=== PATIENT | female | born 1990 | race Hispanic/Latino ===

== ENCOUNTER 2024-12-25 01:10 | Emergency (ER) | payer OTHER ==
--- OUTSIDE RECORDS SUMMARY | 2024-12-25 01:15 | XMS REPORT | Continuity of Care Document ---
Author Name Unknown Address [address] [facility] [address] [place] [address] [facility] Address [address] [facility] [address] [place] [address] Care Team Providers Care Mission Support Specialist Name Role Phone Enrique Carlson Primary Care Physician KAL POSEY Attending Clinician Unavailable Kal Posey MD Attending Clinician ISHMAEL VILLAGRAN Attending Clinician Unavailable ROLLY RIVERA Attending Clinician Unavailable Payers Payer Name Policy Type Policy Number Effective Date Expirati on Date Source [facility] [id number] 00:00:00 BCBS [id number] 2022 00:00:00 Problems Condition Name Condition Details Condition Category Status Onset Date Resolution Date Last Treatment Date Treating Clinician Comments Source PCOS (polycysti c ovarian syndrome) PCOS (polycysti c ovarian syndrome) Disease Active 01-27 00:00: 00 Overview: Formattin g of this note might be different from the original. Diagnosed by anovulato ry cycles, hirsutism , infertili ty and US with polycysti c ovariesOr dered AUB labsBut Aub-O Counseled patient on weight loss and treatment optionsRe commend progester one therapy for endometri al protectio nPatient desiring fertility , therefore recommend cyclic provera as wellCouns eled on all options of BCM. For fertility patient will likely need ovulation induction . SRUTHI referral given and counseled patient on ovulation kitsWill return in 3 months for follow up [facility] Abnormal uterine bleeding Abnormal uterine bleeding Disease Active 01-27 00:00: 00 Overview: Formattin g of this note might be different from the original. AUB-O 2/2 to PCOShgb 12.1Colle cted rest AUB labs, UPT negPap 06/2022 NILM HRHPV neg (in media)US reviewed, 6 cm uterus, no masses, polycysti c ovariesCo unseled on options, desiring fertility , desires cyclic proveraRX sentWill follow up in 3 months for follow up [facility] Social History Social Habit Start Date Stop Date Quantity Comments Source Gender identity 2024-01-07 11:31:18 Identifies as female gender (finding) [facility] History of tobacco use Current smoker [facility] ASSERTION Not Beltran Gomez Sexual orientation [facility] History of Social function 2023-06-23 00:00:00 2023-06-23 00:00:00 [facility] Exposure to SARS-CoV-2 (event) 2023-01-17 00:00:00 2023-01-27 10:54:00 Not sure [facility] Tobacco use and exposure 2023-01-27 00:00:00 2023-01-27 00:00:00 Smokeless tobacco non-user [facility] Sex Assigned At 1990 00:00:00 1990 00:00:00 [facility] Smoking Status Start Date Stop Date Source [facility] Never smoked tobacco [facility] Medications Ordered Medication Name Filled Medication Name Start Date Stop Date Current Medication? Ordering Clinician Indication Dosage Frequency Signature (SIG) Comments Components Source GI cocktail (aluminum hydroxide/m agnesium hydroxide/l idocaine/si methicone) GI cocktail (aluminum hydroxide/m agnesium hydroxide/l idocaine/si methicone) 10-29 05:35: 00 10-29 05:41 :00 No 30mL 30 mL, Oral, Once, On Tue10/29/24 at 0535, For 1 dose Beltran Gomez famotidine (PF) (Pepcid) injection 20 mg famotidine (PF) (Pepcid) injection 20 mg 10-29 05:30: 00 Yes 20mg 20 mg, Intravenou s, Administer over 2 Minutes, Once, On Tue10/29/24 at 0530, For 1 dose Beltran Gomez morphine PF injection 4 mg morphine PF injection 4 mg 10-29 05:10: 00 10-29 05:13 :00 No 4mg 4 mg, Intravenou s, Once, On Tue10/29/24 at 0510, For 1 dose, Administer IVP. Beltran Gomez ondansetron (Zofran) injection 4 mg ondansetron (Zofran) injection 4 mg 10-29 04:15: 00 10-29 04:34 :00 No 4mg 4 mg, Intravenou s, Once, On Tue10/29/24 at 0415, For 1 dose, Administer IVP. Beltran Gomez sodium chloride 0.9 % bolus 1,000 mL [id number] 1-13 04:15: 00 10-29 05:34 :00 No 1000mL 1,000 mL, Intravenou s, at 1,000 mL/hr, Administer over 1 Hours, Once, On Tue10/29/24 at 0415, For 1 dose Beltran Gomez sodium chloride (NS) 0.9 % flush 10 mL sodium chloride (NS) 0.9 % flush 10 mL 10-29 04:14: 15 Yes 10mL [Order 1 Start] Name: Insert peripheral IV Signed Summary: Once, On Tue10/29/24 at 0415, For 1 occurrence [Order 1 End] [Order 2 Start] Name: Saline lock IV Signed Summary: Once, On Tue10/29/24 at 0415, For 1 occurrence [Order 2 End] [Order 3 Start] Name: sodium chloride (NS) 0.9 % flush 10 mL Signed Summary: 10 mL, Intravenou s, As needed, line care, Starting on Tue10/29/24 at 0414 [Order 3 End] Beltran Gomez famotidine (Pepcid) 40 MG tablet famotidine (Pepcid) 40 MG tablet 10-29 00:00: 00 11-18 23:59 :00 No 40mg QD Take 1 tablet by mouth as needed at bedtime for heartburn for up to 20 days. Beltran Gomez ondansetron ODT (Zofran-ODT ) 4 MG disintegrat ing tablet ondansetron ODT (Zofran-ODT ) 4 MG disintegrat ing tablet 1-13 00:00: 00 11-05 23:59 :00 No 4mg Q8H Take 1 tablet by mouth every 8 hours if needed for nausea or vomiting for up to 7 days. Beltran Btaista Epic Semaglutide ,0.25 or 0.5MG/DOS, (Ozempic, 0.25 or 0.5 MG/DOSE,) 2 MG/3ML solution pen-injecto r Semaglutide ,0.25 or 0.5MG/DOS, (Ozempic, 0.25 or 0.5 MG/DOSE,) 2 MG/3ML solution pen-injecto r 07-01 00:00: 00 Yes See Instructio frank, 0.25 mg SUB Q qweek for 4 weeks 0.5 mg SUB-Q qWeek 2 weeks, # 3 mL, 0 Refill(s), Pharmacy: [facility] [place] [facility], 162.56, cm, 06/23/23 9:21:00 CDT, Height, 104.261, kg, 06/23/23 9:21:00 CDT, Weight Beltran Batista Epic triamcinolo ne (Kenalog) 0.1 % cream triamcinolo ne (Kenalog) 0.1 % cream 06-23 00:00: 00 Yes 15 unknown unit, APPLY TO AFFECTED AREA TOPICALLY EXTERNALLY TWICE A DAY., 0 Refill(s) Beltran Gomez meloxicam (Mobic) 15 MG tablet meloxicam (Mobic) 15 MG tablet 06-23 00:00: 00 Yes 30 ea, TAKE 1 TABLET BY MOUTH EVERY DAY NEEDED, 0 Refill(s) Beltran Gomez medroxyPROG ESTERone (Provera) 10 MG tablet medroxyPROG ESTERone (Provera) 10 MG tablet 06-23 00:00: 00 Yes 90 ea, PLEASE SEE ATTACHED FOR DETAILED DIRECTIONS , 0 Refill(s) Memcarmen Batista Epic losartan (Cozaar) 100 MG tablet losartan (Cozaar) 100 MG tablet 06-23 00:00: 00 Yes 100mg 100 mg = 1 tab, PO, Daily, 90 unknown unit, TAKE ONE (1) TABLET(S) BY MOUTH DAILY., # 90 tab, 3 Refill(s), Pharmacy: [facility] #2, 162.56, cm, 06/23/23 9:21:00 CDT, Height, 104.261, kg, 06/23/23 9:21:00 CDT, Weight Beltran Gomez medroxyPROG ESTERone (Provera) 10 MG tablet 01-27 00:00: 00 01-27 04:59 :00 No [id number] 100 10mg QD Take 1 tablet (10 mg total) by mouth 1 (one) time each day. Take 1 tablet by mouth daily for 10 days beginning on day 16 of the menstrual cycle, every month. Expect bleeding 3-5 days after [facility] Mounjaro 5 MG/0.5ML solution pen-injecto r 01-22 00:00: 00 Yes TAKE FIVE (5) MG (0.5ML) SUBCUTANEO USLY ONCE A WEEK. [facility] metFORMIN (Glucophage ) 1000 MG tablet 01-07 00:00: 00 Yes 1000mg Q.5D Take 1,000 mg by mouth in the morning and 1,000 mg in the evening. [facility] Cholecalcif marla (Vitamin D3) 1.25 MG (91201 UT) capsule capsule 01-06 00:00: 00 Yes 1{capsu le} Take 1 capsule by mouth 1 (one) time per week. [facility] meloxicam (Mobic) 15 MG tablet 01-05 00:00: 00 Yes 15mg Take 15 mg by mouth 1 (one) time each day if needed. [facility] hydrOXYzine HCl (Atarax) 25 MG tablet 12-27 00:00: 00 Yes 25mg Take 25 mg by mouth every 12 (twelve) hours if needed. [facility] triamcinolo ne (Kenalog) 0.1 % cream 12-27 00:00: 00 Yes APPLY TO AFFECTED AREA TOPICALLY EXTERNALLY TWICE A DAY. [facility] losartan (Cozaar) 100 MG tablet 2-25 00:00: 00 Yes 100mg QD Take 100 mg by mouth 1 (one) time each day. [facility] cyclobenzap rine (Flexeril) 10 MG tablet 2-15 00:00: 00 Yes 10mg QD Take 10 mg by mouth 1 (one) time each day. [facility] fluticasone (Flonase) 50 MCG/ACT nasal spray 15 00:00: 00 Yes USE ONE (1) SPRAY(S) INTO EACH NOSTRIL DAILY. [facility] atorvastati n (Lipitor) 40 MG tablet 1-18 00:00: 00 Yes 40mg Take 40 mg by mouth every night. [facility] hydroCHLORO thiazide (HYDRODiuri l) 12.5 MG tablet - 00:00: 00 Yes TAKE 1 TABLET BY MOUTH EVERY DAY IN THE MORNING FOR 90 DAYS [facility] ketorolac (Toradol) 10 MG tablet -16 00:00: 00 Yes 10mg Q.[id number] 3D Take 10 mg by mouth in the morning and 10 mg at noon and 10 mg in the evening. [facility] ferrous sulfate 325 (65 Fe) MG tablet 07-14 00:00: 00 Yes 1{tbl} QD Take 1 tablet by mouth 1 (one) time each day. [facility] Blood Glucose Monitoring Suppl (Accu-Chek Guide Me) w/Device kit 05-18 00:00: 00 Yes QD 1 (one) time each day. use as directed [facility] Vital Signs Vital Name Observation Time Observation Value Comments Pa didialbert Systolic blood pressure 2024-10-29 08:21:00 122 mm[Hg] [facility] Diastolic blood pressure 2024-10-29 08:21:00 84 mm[Hg] [facility] Heart rate 2024-10-29 08:21:00 68 /min Gaviota torres [facility] Body temperature 2024-10-29 08:21:00 36.5 Lisa [facility] Respiratory rate 2024-10-29 08:21:00 15 /min [facility] Oxygen saturation in Arterial blood by Pulse oximetry 2024-10-29 08:21:00 100 /min [facility] Her henriquez [facility] Body height 2024-10-29 04:00:00 162.6 cm Bishop Winstonann [facility] Body weight 2024-10-29 04:00:00 104.1 kg Bishop Winstonann [facility] BMI 2024-10-29 04:00:00 39.39 kg/m2 Bishopyung jose [facility] Systolic blood pressure 2024-10-29 08:21:00 122 mm[Hg] [facility] Diastolic blood pressure 2024-10-29 08:21:00 84 mm[Hg] [facility] Heart rate 2024-10-29 08:21:00 68 [facility] Body temperature 2024-10-29 08:21:00 36.5 Lisa [facility] Respiratory rate 2024-10-29 08:21:00 15 /min [facility] Oxygen saturation in Arterial blood by Pulse oximetry 2024-10-29 08:21:00 100 /min [facility] Body height 2024-10-29 04:00:00 162.6 cm Bishop jose [facility] Body weight 2024-10-29 04:00:00 104.1 kg Bishop jose [facility] BMI 2024-10-29 04:00:00 39.39 kg/m2 Bishop [facility] Systolic blood pressure 2023-01-27 17:00:00 126 mm[Hg] [facility] Diastolic blood pressure 2023-01-27 17:00:00 83 mm[Hg] [facility] Heart rate 2023-01-27 17:00:00 68 /min [facility] Body temperature 2023-01-27 17:00:00 36.78 Lisa [facility] Body weight 2023-01-27 17:00:00 102.059 [facility] Procedures Procedure Date / Time Performed Performing Clinicia n Source TROPONIN I HIGH SENSITIVITY (SINGLE ORDER) 2024-10-29 05:59:00 Kal Posey [facility] UA WITH CULTURE IF INDICATED 2024-10-29 05:11:00 Laurie Estrella Joe [facility] PLATELET COUNT (BLUE TOP) 2024-10-29 05:10:00 Laurie Estrella [facility] BASIC METABOLIC PANEL 2024-10-29 04:28:00 Fernando lopez Laurie [facility] HEPATIC FUNCTION PANEL 2024-10-29 04:28:00 Ashley farnsworth Laurie [facility] LIPASE LEVEL 2024-10-29 04:28:00 Flako Estrella [facility] HCG TOTAL (QUANTITATIVE) 2024-10-29 04:28:00 Laurie Israel [facility] COMPLETE BLOOD COUNT W/DIFF AND PLATELET 2024-10-29 04:28:00 Laurie Estrella [facility] COMPLETE BLOOD COUNT 2024-10-29 04:28:00 Juan Miguel soto Laurie [facility] AUTOMATED DIFFERENTIAL 2024-10-29 04:28:00 Ashley farnsworth [facility] ECG 12 lead (arrhythmia) 2024-10-29 00:00:00 [facility] POCT , URINE 2023-01-27 17:04:50 Anh Villagran [facility] Encounters Start Date/Time End Date/Time Encounter Type Admission Type Attending [facility] Care Facility Care Department Encounter ID Source 2023-04-15 16:06:50 Outpatient [facility] [id number] [facility] 2023-01-27 10:52:11 Outpatient [facility] [id number] [facility] 2022-12-16 15:53:59 Outpatient [facility] [id number] [facility] 2024-10-29 04:09:00 2024-10-29 08:22:00 Emergency Emergency TATY, [facility] General Medicine [id number] EPL 2024-10-29 04:09:00 2024-10-29 08:22:00 Emergency Taty, [facility] [id number] Beltran monsalve [facility] 2023-04-28 10:00:00 2023-04-28 10:00:00 Outpatient ISHMAEL VILLAGRAN [facility] [id number] [facility] 2023-01-27 10:00:00 2023-01-27 12:04:29 Office Visit Ishmael Villagran [facility] [id number] [facility] 2022-08-31 15:30:00 2022-08-31 15:30:00 Outpatient MIGUEL ROLLY SHERIE SHERIE [id number] Sherie lul 2022-05-17 00:00:00 2022-05-17 00:00:00 Outpatient [facility] [id number] [facility] Results Test Description Test Time Test Comments Results Result Co mments Source [facility] Notes Date/Time Note Provider Source 2024-10-29 08:22:50 Pantera Batista * Calculated C-SSRS Risk Score (Lifetime/Recent) Answer Date of Assessment Author No Risk Indicated 10/29/2024 8:00 AM Rosa Gomez RN * Butler Suicide Severity Rating Scale (Screener/Recent Self-Report) Question Answer Date of Assessment Author 1. Wish to be (Past 1 Month) No 10/29/2024 8:00 AM Rosa Romero RN 2. Non-Specific Active Suicidal Thoughts (Past 1 Month) No 10/29/2024 8:00 AM Rosa Romero RN 6. Suicidal Behavior (Lifetime) No 10/29/2024 8:00 AM [id number] 08:22:50Pending Results Scheduled Orders Name Type Priority Associated Diagnoses Orde r Schedule ECG 12 lead (arrhythmia) ECG STAT Once for 1 Occur rences starting 10/29/2024 until 10/29/2024 Health Maintenance Due Date Last Done Comments Annual Physical 02/06/1992 Diabetes: Foot Exam 1999 Diabetes: Retinopathy Screening 1999 Varicella Vaccines (1 of 2 - 13+ 2-dose series) 2002 DTaP/Tdap/Td Vaccines (1 - Tdap) 02/06/2008 Hepatitis B Vaccines (1 of 3 - 19+ 3-dose series) 02/06/2008 Pap Smear 2010 Cervical Cancer Screening 2019 HPV/Cotest 2019 Diabetes: Hemoglobin A1C 12/22/2023 06/23/2023 Influenza Vaccine (#1) 2024 Diabetes: Urine Protein Screening 06/23/2024 023 Lipid Panel 06/23/2024 06/23/2023 HIB Vaccines Aged Out No longer eligi ble based on patient's age to complete this topic HPV Vaccines Aged Out No longer eligi ble based on patient's age to complete this topic Hepatitis A Vaccines Aged Out No long er eligible based on patient's age to complete this topic IPV Vaccines Aged Out No longer eligi ble based on patient's age to complete this topic Meningococcal Vaccine Aged Out No dinesh rachel eligible based on patient's age to complete this topic Pneumococcal Vaccine: Pediat rics (0 to 5 Years) and At-Risk Patients (6 to 64 Years) Aged Out No longer eligible b ased on patient's age to complete this topic Rotavirus Vaccines Aged Out No longer eligible based on patient's age to complete this topic [id number] 08:22:50 Diagnosis Nausea and vomiting, unspeci fied vomiting type - Primary Abdominal pain, epigastric [facility]oy[facility]zc6736-10-17 08:22:50 [facility]
[2024-12-25 03:09] LABS: Albumin 3.4 g/dL (3.4-5.0); Albumin/Globulin Ratio 0.9 (1.1-1.8); Anion Gap 8.4 mEq/L (5.0-15.0); Bilirubin Total 0.3 mg/dL (0.2-1.0); Globulin 3.8 g/dL (2.3-3.5); Potassium 3.4 mEq/L (3.5-5.1); Protein, Total 7.2 g/dL (6.4-8.2)
[2024-12-25 03:21] LABS: Specific Gravity 1.021 (1.005-1.030)
[2024-12-25 03:22] LABS: Specific Gravity 1.021 (1.005-1.030); Sqamous Epithelial <5 /HPF (None Seen); Urine Bacteria None Seen /HPF (<20); Urine Bilirubin NEGATIVE (Negative); Urine Blood 3+ (OVER) (Negative); Urine Clarity Extremely Turbid (Clear); Urine Color Light-Brown (Yellow); Urine Culture Reflex Order NOT NEEDED; Urine Glucose NEGATIVE (Negative); Urine Ketones NEGATIVE (Negative); Urine Microscopic Reflex YN ORDER UMIC; Urine Mucus Slight /HPF (None Seen); Urine Nitrite NEGATIVE (Negative); Urine Protein TRACE (Negative); Urine RBC >50 /HPF (None Seen); Urine Urobilinogen Normal (Normal); Urine WBC <5 /HPF (<5); Urine pH 6.5 (5.0-7.0)
--- NOTE | 2024-12-25 03:34 | RAD REPORT ---
EXAM: US Pelvis Transvaginal CLINICAL HISTORY: VAGINAL BLEEDING TECHNIQUE: Real-time transvaginal pelvic ultrasound with image documentation. Transvaginal imaging was used fo r better evaluation of the endometrium and adnexa. COMPARISON: No relevant prior studies available. FINDINGS: Uterus/cervix: The uterus is retroverted and measures 5.3 x 4 x 5 cm. The endometrial stripe aileen ures 6 mm in thickness. Nabothian cysts at the level of the cervix. No myometrial mass. Right ovary: The right ovary measures 3.4 x 3.4 x 2.9 cm. Normal blood flow. Left ovary: The left ovary measures 4 x 2.6 x 2.1 cm. Normal blood flow. Free fluid: No free fluid. Bladder: Empty bladder which cannot be evaluated with this probe. IMPRESSION: No discrete uterine or endometrial abnormality. Electronically signed by: Vinod Vance MD 12/25/2024 03:30 AM CDT Due to temporary technical issues with the PACS/[employer] reporting system, reports are being signed by the in-house radiologist without review as a courtesy to ensure prompt reporting the interpreting radiologist is fully responsible for the content of the report. Transcribed Date/Time: 12/25/2024 3:33 AM
[2024-12-25 03:41] LABS: Absolute Basophils 0.2 K/uL (0-0.5); Absolute Eosinophils 0.2 K/uL (0-0.5); Absolute Lymphocytes (CBC) 4.2 K/uL (0.7-4.9); Absolute Monocytes 0.8 K/uL (0.1-1.3); Absolute Neutrophil 6.3 K/uL (1.8-8.0); Basophils % 1.3 % (0-1.3); Eosinophils % 1.9 % (0-4.4); Hematocrit 33.1 % (36.0-45.0); Lymphocytes % 35.8 % (15.3-44.8); MCH 27.2 pg (27.0-35.0); MCHC 33.2 g/dL (32.0-36.0); MCV 81.9 fL (80-100); Nucleated Red Blood Cells % 0.1 % (0-0); RBC Red Blood Cell Count 4.04 M/uL (3.86-4.86); Red Cell Distribution Width 14.9 % (12.1-15.2)
[2024-12-25 03:44] LABS: Platelets 183 thou/uL (152-406)
--- NOTE | 2024-12-25 03:55 | EDPHYS ---
Physician Documentation [facility] Name: Hailey Galvan Age: 34 yrs Sex: Female : 1990 Arrival Date: 12/25/2024 Time: 01:10 Bed 5 Private MD: ED Physician Nilesh Smith HPI: 12/25 01:38 This 34 yrs old Female presents to ER via Unassigned with complaints of kb Vaginal Bleeding, Low Back Pain. 01:38 Pt is a 34 year old female who presents for vaginal bleeding that started 3 weeks ago. kb States the bleeding has been intermittent until a couple of hours ago when it became heavy. Reports lower abd and low back pain. Pt has not taken a test, but states she does not think she is . States she has only been once before and it was through IVF. Denies shortness of breath, dizziness.. COOK SPECIALTY: 02:22 Not cp4 Historical: - Allergies: 02:22 No Known Allergies; cp4 - Immunization history:: Adult Immunizations up to date. - Infectious Disease History:: Denies. - Social history:: Smoking status: Patient denies any tobacco usage or history of. ROS: 01:29 Constitutional: As per HPI kb Exam: 01:29 Constitutional: This is a well developed, well nourished patient who is awake, alert, kb and in no acute distress. Head/Face: Normocephalic, atraumatic. ENT: Moist Mucous membranes Cardiovascular: Regular rate Respiratory: Respirations even and unlabored. No increased work of breathing. Talking in full sentences Back: No spinal tenderness. No costovertebral tenderness. Full range of motion. Skin: Warm, dry with normal turgor. Normal color. MS/ Extremity: Pulses equal, no cyanosis. Neurovascular intact. Full, normal range of motion. Neuro: Awake and alert, GCS 15, oriented to person, place, time, and situation. 01:29 Abdomen/GI: Inspection: obese Bowel sounds: normal, Palpation: soft, in all quadrants, mild abdominal tenderness, in the right lower quadrant and left lower quadrant, 01:38 : Pelvic Exam: External exam: is normal, Speculum exam: mild bleeding, the family/significant other was present for the exam, Vital Signs: 01:20 BP 174 / 106; Pulse 75; Resp 18; Pulse Ox 100% ; Weight 104.33 kg; Height 5 ft. 4 in. ; cp4 Pain 0/10; 03:04 BP 129 / 77; Pulse 78; Resp 18; Pulse Ox 98% ; cp4 04:07 BP 124 / 72; Pulse 74; Resp 18; Pulse Ox 99% ; cp4 01:20 Body Mass Index 39.48 (104.33 kg, 162.56 cm) cp4 01:20 Pain Scale: Adult cp4 MDM: 01:21 Medical Screening Exam initiated kb 01:30 Data reviewed: vital signs, nurses notes. kb 01:38 Transition of care: After a detail discussion of the patient's case, care is kb transferred to Nilesh Smith MD. 04:20 Differential diagnosis: Menorrhagia, fibroid. Counseling: I had a detailed discussion rt with the patient and/or guardian regarding the historical points, exam findings, and any diagnostic results supporting the discharge/admit diagnosis, lab results, radiology results, the need for outpatient follow up, to return to the emergency department if symptoms worsen or persist or if there are any questions or concerns that arise at home. Response to treatment: the patient's symptoms have mildly improved after treatment. 12/25 01:29 Order name: CBC with Diff; Complete Time: 03:45 kb 12/25 01:29 Order name: Test, Urine; Complete Time: 03:35 kb 12/25 01:29 Order name: Urinalysis w/ reflexes; Complete Time: 03:35 kb 12/25 01:29 Order name: CMP; Complete Time: 03:35 kb 12/25 01:29 Order name: US Transvaginal Study (Probe); Complete Time: 03:37 kb 12/25 01:29 Order name: IV Saline Lock; Complete Time: 02:28 kb 12/25 01:29 Order name: Labs collected and sent; Complete Time: 02:28 kb 12/25 01:29 Order name: NPO; Complete Time: 01:38 kb Administered Medications: No medications were administered Disposition: 04:20 Co-signature as Attending Physician, Nilesh Smith MD I reviewed the patient's care rt provided by Advanced Practice Provider \T\ agree w/ the diagnosis \T\ care plan. I personally saw the pt \T\ performed a substantive portion of the visit, incldng all aspects of the (History/Exam/Medical Decision Making). Disposition Summary: 12/25/24 03:54 Discharge Ordered Notes: Location: Home rt Problem: new rt Symptoms: have improved rt Condition: Stable rt Diagnosis - Menorrhagia rt Followup: rt - With: Rosaura Washington MD - When: 5 - 6 days - Reason: Discharge Instructions: - Discharge Summary Sheet rt - Menorrhagia rt Forms: - Medication Reconciliation Form rt - Antibiotic Education rt - Prescription Opioid Use rt - Patient Portal Instructions rt - Leadership Thank You Letter rt - Family Work Release cp4 Prescriptions: - tranexamic acid 650 mg Oral tablet - take 2 tablet ORAL route 3 times per day for 5 days; 30 tablet; Refills: 0, rt Product Selection Permitted Signatures: Dispatcher [employer] Susy Godfrey, REVA DIAZ-Nilesh Chávez MD MD rt Ileana Farmer cp4
--- NOTE | 2024-12-25 03:55 | ER ---
Nurse's Notes [facility] Name: Hailey Galvan Age: 34 yrs Sex: Female : 1990 Arrival Date: 12/25/2024 Time: 01:10 Bed 5 Private MD: Diagnosis: Menorrhagia Presentation: 12/25 01:20 Chief complaint: Patient states: vaginal bleeding for 3 weeks. Has gotten heavy in the cp4 last hour with clots. 01:20 Coronavirus screen: Client denies travel out of the [place] in the last 14 days. At this cp4 time, the client does not indicate any symptoms associated with coronavirus-19. Ebola Screen: Patient negative for fever greater than or equal to 101.5 degrees Fahrenheit, and additional compatible Ebola Virus Disease symptoms Patient denies exposure to infectious person. Patient denies travel to an Ebola-affected area in the 21 days before illness onset. No symptoms or risks identified at this time. Initial Sepsis Screen: Does the patient meet any 2 criteria? No. Patient's initial sepsis screen is negative. Does the patient have a suspected source of infection? No. Patient's initial sepsis screen is negative. Risk Assessment: Do you want to hurt yourself or someone else? Patient reports no desire to harm self or others. Onset of symptoms was December 24, 2024. 01:20 Method Of Arrival: Ambulatory cp4 01:20 Acuity: ONELIA 3 cp4 Triage Assessment: 02:22 General: Appears in no apparent distress. Behavior is calm, cooperative, appropriate cp4 for age. Pain: Denies pain. EENT: No deficits noted. Neuro: Level of Consciousness is awake, alert, obeys commands, Oriented to person, place, time, situation. Cardiovascular: Patient's skin is warm and dry. Respiratory: Airway is patent Respiratory effort is even, unlabored. GI: : Reports vaginal bleeding that is bright red, with clots, heavy flow. Derm: No signs and/or symptoms reported regarding the dermatologic system. Musculoskeletal: No signs and/or symptoms reported regarding the musculoskeletal system. PHOTOGRAMMETRIC COMPILATION SPECIALIST: 02:22 Not cp4 Historical: - Allergies: 02:22 No Known Allergies; cp4 - Immunization history:: Adult Immunizations up to date. - Infectious Disease History:: Denies. - Social history:: Smoking status: Patient denies any tobacco usage or history of. Screenin:26 [facility] ED Fall Risk Assessment (Adult) History of falling in the last 3 months, cp4 including since admission No falls in past 3 months (0 pts) Confusion or Disorientation No (0 pts) Intoxicated or Sedated No (0 pts) Impaired Gait No (0 pts) Mobility Assist Device Used No (0 pt) Altered Elimination No (0 pt) Score/Fall Risk Level 0 - 2 = Low Risk Oriented to surroundings, Maintained a safe environment, Assessed \T\ reinforced patient's understanding of fall precautions, Hourly rounding (assess needs \T\ fall precautionary measures) done. Abuse screen: Denies threats or abuse. Denies injuries from another. Nutritional screening: No deficits noted. Tuberculosis screening: No symptoms or risk factors identified. Assessment: 02:26 Reassessment: No changes from previously documented assessment. cp4 Vital Signs: 01:20 BP 174 / 106; Pulse 75; Resp 18; Pulse Ox 100% ; Weight 104.33 kg; Height 5 ft. 4 in. ; cp4 Pain 0/10; 03:04 BP 129 / 77; Pulse 78; Resp 18; Pulse Ox 98% ; cp4 04:07 BP 124 / 72; Pulse 74; Resp 18; Pulse Ox 99% ; cp4 01:20 Body Mass Index 39.48 (104.33 kg, 162.56 cm) cp4 01:20 Pain Scale: Adult cp4 ED Course: 01:17 Patient arrived in ED. gm2 01:20 [facility]C [facility] kb 01:20 Nilesh Smith MD is Attending Physician. kb 02:02 Ileana Farmer is Primary Nurse. cp4 02:09 US Transvaginal Study (Probe) In Process Unspecified. EDMS 02:22 Triage completed. cp4 02:22 Arm band placed on right wrist. Patient placed in waiting room. cp4 02:26 Bed in low position. Call light in reach. Side rails up X 1. cp4 02:26 No provider procedures requiring assistance completed. Inserted saline lock: 20 gauge cp4 in right antecubital area, using aseptic technique. Blood collected. Flushed with 10 mL NS. 03:54 Rosaura Washington MD is Referral Physician. rt 04:08 Provided Education on: menorrhagia. cp4 04:08 intact, bleeding controlled, No redness/swelling at site. Pressure dressing applied. cp4 Administered Medications: No medications were administered Medication: 02:26 VIS not applicable for this client. cp4 Outcome: 03:54 Discharge ordered by . rt 04:08 Discharged to home ambulatory, cp4 04:08 Condition: stable 04:08 Discharge instructions given to patient, family, Instructed on discharge instructions, follow up and referral plans. medication usage, Demonstrated understanding of instructions, follow-up care, medications, Prescriptions given X 1, 04:09 Patient left the ED. cp4 Signatures: Dispatcher [employer] EDMS Susy Chang, FLATWORK IRONER-C FLATWORK IRONER-Ckb Nilesh Smith MD MD rt Potter, Christina cp4 Jocelyne Correa [facility]
[2024-12-25 04:18] VITALS: BP 124/72; O2SAT 99
== END 2024-12-25 04:09 | disposition home or self-care (01) ==
LOC: ER 01:10
DX: N92.0 Excessive and frequent menstruation with regular cycle (principal)
CPT/HCPCS: 36415; 76830; 80053; 81001; 81025; 85025; 99284

== ENCOUNTER 2025-02-21 05:55 | Day surgery (SDC) | payer OTHER ==
[2025-02-19 15:29] LABS: Absolute Basophils 0.1 K/uL (0-0.5); Absolute Eosinophils 0.1 K/uL (0-0.5); Absolute Monocytes 0.3 K/uL (0.1-1.3); Absolute Neutrophil 9.7 K/uL (1.8-8.0); Basophils % 0.7 % (0-1.3); Eosinophils % 0.7 % (0-4.4); Hematocrit 30.3 % (36.0-45.0); Lymphocytes % 16.1 % (15.3-44.8); MCH 25.6 pg (27.0-35.0); MCV 77.6 fL (80-100); MPV 8.1 fL (7.6-11.3); Monocytes % 2.7 % (3.3-12.3); Neutrophils % 79.8 % (41.7-73.7); Nucleated Red Blood Cells % 0.1 % (0-0); Platelets 35 thou/uL (152-406); RBC Red Blood Cell Count 3.91 M/uL (3.86-4.86); Red Cell Distribution Width 15.4 % (12.1-15.2)
[2025-02-19 15:32] LABS: Specific Gravity 1.012 (1.005-1.030); Sqamous Epithelial <5 /HPF (None Seen); Urine Bacteria <20 /HPF (<20); Urine Bilirubin NEGATIVE (Negative); Urine Blood 2+ (Negative); Urine Clarity Turbid (Clear); Urine Color Light-Yellow (Yellow); Urine Crystals Unidentified Few /HPF (None Seen); Urine Culture Reflex Order NOT NEEDED; Urine Glucose NEGATIVE (Negative); Urine Ketones NEGATIVE (Negative); Urine Microscopic Reflex YN ORDER UMIC; Urine Mucus Slight /HPF (None Seen); Urine Nitrite NEGATIVE (Negative); Urine Protein NEGATIVE (Negative); Urine Urobilinogen Normal (Normal); Urine WBC <5 /HPF (<5); Urine Yeast (Budding) Trace /HPF (None Seen); Urine pH 5.5 (5.0-7.0)
[2025-02-19 15:43] LABS: Anion Gap 10.7 mEq/L (5.0-15.0); Potassium 3.7 mEq/L (3.5-5.1)
[2025-02-19 16:43] LABS: Blood Morphology Comment NOT SEEN (NOT SEEN); Platelet Estimate DECR; Platelets Clumped NOTED; White Blood Cell Scan OK (OK)
[2025-02-21] MEDS: NA CHLORIDE 0.9% 1,000 ML ONE (06:15)
[2025-02-21] MEDS: SCOPOLAMINE HYDROBROMIDE PATCH TD ONE (06:20)
[2025-02-21] MEDS ORDERED: ONDANSETRON 4 MG/2 ML VIAL ONE (06:40)
[2025-02-21] MEDS ORDERED: LIDOCAINE 2% MPF 5 ML VIAL ONE (06:40)
[2025-02-21] MEDS ORDERED: GLYCOPYRROLATE 0.2 MG/ML SYR ONE (06:40)
[2025-02-21] MEDS ORDERED: NEOSTIGMINE 1 MG/ML -10 ML VIAL ONE (06:40)
[2025-02-21] MEDS ORDERED: ROCURONIUM 50 MG/5 ML VIAL IV ONE ×2 (06:40→07:39)
[2025-02-21] MEDS ORDERED: propofoL 200 MG/20 ML VIAL IV ONE (06:40)
[2025-02-21] MEDS ORDERED: FENTANYL CITR 100 MCG/2 ML ONE ×2 (06:41→07:39)
[2025-02-21] MEDS ORDERED: MIDAZOLAM HCL 2 MG/2 ML INJ ONE (06:41)
[2025-02-21] MEDS: ALBUTEROL 2.5 MG/3 ML NEB SOL ONE (06:55)
[2025-02-21] MEDS: Levofloxacin500mg IV 500 MG/100 ML BAG IV ONE (07:38)
[2025-02-21] MEDS ORDERED: dexAMETHasone 10 MG/ML VIAL ONE (07:53)
[2025-02-21 07:58] LABS: Urine Specific Gravity/Preg >1.030 (1.005-1.030)
[2025-02-21] MEDS: BUPIVACAINE 0.25% PF 30 ML VIAL ONE (08:00)
[2025-02-21] MEDS ORDERED: EPHEDRINE SULF 50 MG/ML VIAL ONE (08:07)
[2025-02-21] MEDS: METHYLENE BLUE 1% 10 ML VIAL ONE (08:11)
[2025-02-21] MEDS ORDERED: Mastisol Adhesive Liq ONE (08:50)
[2025-02-21] MEDS ORDERED: KETOROLAC 30 MG/ML INJ ONE (08:53)
[2025-02-21] MEDS ORDERED: HYDROMORPHONE HCL 1 MG/ML INJ ONE (09:24)
[2025-02-21] MEDS: HYDROMORPHONE HCL 1 MG/ML INJ ONE (09:26)
[2025-02-21] MEDS ORDERED: NA CHLORIDE 0.9% 500 ML ONE (09:41)
[2025-02-21 10:01] VITALS: BP 101/62; TEMP 97; O2SAT 100
[2025-02-21] MEDS: HYDROCODONE/APAP 10/325 TAB ONE (11:23)
[2025-02-21 11:24] LABS: Absolute Basophils 0.1 K/uL (0-0.5); Absolute Monocytes 0.6 K/uL (0.1-1.3); Absolute Neutrophil 16.1 K/uL (1.8-8.0); Basophils % 0.3 % (0-1.3); Hematocrit 28.9 % (36.0-45.0); Hemoglobin 9.3 g/dL (12.0-15.0); Lymphocytes % 10.7 % (15.3-44.8); MCH 25.2 pg (27.0-35.0); MCHC 32.1 g/dL (32.0-36.0); MCV 78.6 fL (80-100); MPV 8.3 fL (7.6-11.3); Nucleated Red Blood Cells % 0.1 % (0-0); RBC Red Blood Cell Count 3.67 M/uL (3.86-4.86); Red Cell Distribution Width 15.3 % (12.1-15.2)
--- NOTE | 2025-02-21 11:48 | EKG ---
Test Date: 2025-02-19 Test Time: 14:45:25 [employer] Monitoring Technician: ELVA MEASUREMENT RESULTS: Intervals: Rate: 74 RI: 170 QRSD: 94 QT: 386 QTc: 428 Malo: P: 57 RI: 170 QRS: 37 T: 52 INTERPRETIVE STATEMENTS: Normal sinus rhythm Normal ECG No previous ECG available for comparison Electronically Signed On 02-21-25 11:43:24 CDT by Meet Jacobo
[2025-02-21 12:11] LABS: Platelets 135 thou/uL (152-406)
[2025-02-21 12:12] LABS: Platelet Estimate ADEQ; Platelets Clumped MANY; White Blood Cell Scan OK (OK)
[2025-02-21 12:13] LABS: Blood Morphology Comment NOT SEEN (NOT SEEN); Polychromasia 1+
--- NOTE | 2025-02-21 19:49 | OP ---
Date of Procedure: 02/21/2025 Surgeon: Rosaura Washington MD Tube Bending Machine Operator: Oksana De Oliveira. Preoperative Diagnoses: Irregular menstrual periods, possible endometrial polyp, dyspareunia. Postoperative Diagnoses: Irregular menstrual periods; possible endometrial polyp; dyspareunia; deep infiltrating endometriosis of the right posterior broad ligament, left uterosacral ligament, and late ral wall; patent bilateral tubes. Procedures Performed: 1. Diagnostic hysteroscopy, endometrial polypectomy with MyoSure Lite, and dilation and curettage. 2. Diagnostic laparoscopy, endometriosis excision, chromotubation. Endometriosis excision was for th e deep infiltrating endometriosis from the underlying tissues, the right posterior broad ligament, an d the left lateral wall dissecting the ureter away and excising it completely. Estimated Blood Loss: Minimal. Specimens: Right posterior broad ligament, left uterosacral ligament, and lateral wall endometriosis . These were sent as 2 separate specimens and endometrial curettings and polyp together with a 3 tot al specimens. Complications: No complications. Drains: No drains. Condition: The patient's condition is stable. Findings: 1. Right lateral wall endometriosis was minimal, but mostly in the posterior broad ligament all the w ay extending from the distal portion of the peritoneum over the ureter extending above into the broad ligament all the way to the utero-ovarian ligament laterally and down towards the lateral wall on th e right side just inferior to the utero-ovarian ligament. All this endometriosis was completely exc ised. 2. There were deep infiltrating endometriotic implants right across the distal portion of the ureter near the ureteric tunnel perpendicularly across the ureter. Then, the lesions were extending on the uterosacral ligament and on to the lateral wall extending down over the ureteric course towards the p eritoneum between the ureter and the uterosacral. The ureter had to be dissected laterally in order for me to safely excise all this endometriosis that was deep and dissection was performed until all n ormal tissue was visualized. 3. The tubes first on the left side readily flushed. However, on the right side, there was difficult y in even filling the tube. Then, at least 80 mL of the methylene blue solution had to be pushed bef ore there was slight fill of the tube on the right side, which was later followed by a spill after fl ushing another 20 cc vigorously. All the blue dye was suctioned out. Then, peritoneal cavity was ir rigated and suctioned. Indications: The patient is a 35-year-old 1, para 0-0-1-0 with significant irregular periods and dyspareunia, some pelvic pain and inability to conceive that was just historical. We evaluated the patient with transvaginal ultrasound where she has significant endometrial thickenin g, suspected endometrial polyp. So, discussed about all the different options for the patient includ ing a suspicion of endometriosis and since there is also significant bleeding. Sampling and removal of the polyp followed by endometriosis excision and chromotubation if this was contributing to any pa rt of her pelvic pain. All these were discussed with the patient. The patient consented for it. Al ternative was to observe or conservatively manage, but she is 35 years old and wanted to proceed with the surgery as the pain was significant. Description Of Procedure: After informed consent was verified, she was brought back to the OR. She was placed in a supine fashion on the operating table. Gave her 500 mg of Levaquin because she had a white count of 12,000 at her preoperative labs and her urine was slightly turbid, although there was no gross sign of infection. Decided to give her a dose of Levaquin. After abdomen was prepped with ChloraPrep; vulva, vagina, and perineum with Betadine, patient was pos itioned appropriately. Arms tucked by the side. She was already in lithotomy position. The patient was grounded. SCDs were started. The patient was draped in a sterile fashion and time-out was done . The patient had general endotracheal intubation at the beginning of the procedure after which I pe rformed all the above. Hysteroscopy and MyoSure Lite, polypectomy, and D and C: Speculum was placed to expose the cervix. Anterior lip was grasped with a single-tooth tenaculum. Cervix was dilated to 16-English and a primed MyoSure scope was brought into the field and hysteroscopy was performed to visualize the cavity. Ir regular lining in the right lateral wall, almost consistent with a polyp noted. Retroflexed retrover airam cavity, both tubal ostia were well visualized. MyoSure Lite device was taken and this replaced t he inner suction cannula through MyoSure scope sheath. Then, after the deficit out, the p olypoid endometrium was excised and the entire endometrial cavity was sampled gently. All the hysteroscopic instruments were removed and uterine manipulator was inserted and fixed in plac e. Carballo was placed to drain the bladder and this area was draped. 1 cm infraumbilical incision was made with a scalpel after injecting 0.25% Marcaine at the skin. The skin appeared to be significantly thick, but no evidence of any cellulitis. Fascia was exposed, inc ised, and 0 Vicryl tag was placed on each side of the fascial flap. Peritoneum was entered bluntly. S retractors were placed and after adequate insufflation, site of entry was checked and was unremark able. Three 5 ports, 1 in the left lower quadrant, right lower quadrant, suprapubic were placed unde r direct visualization. The patient was then placed in Trendelenburg position. Bowel retracted supe riorly. Her appendix was unremarkable, other peritoneal surfaces were unremarkable. Endometriosis a s dictated above. Endometriosis excision: The endometriotic implants on the right lateral wall were first started to b e dissected. Started right above the ureteric tunnel on the peritoneum, I made an incision with yahir borrego scissors and this dissection was carried on by excising all the endometriosis globally from its und erlying tissues with the LigaSure. Once this was entirely stripped and completed, this was retracted superiorly and laterally to the right and the entire specimen detached. There was no compromise of the blood supply to the utero-ovarian ligament and there was no bleeding. The ureter appeared to be safe on the right side after the dissection and this was checked multiple t imes during the procedure too. Left lateral wall incision was made slightly below the level of the broad ligament and laterally supe rior to the ureter. Then, this incision was extended cephalad parallel to the ureter and then taken down across the ureter perpendicularly after dissecting the ureter off from the medial leaf of the br oad ligament carefully. Then, the rest of the endometriosis from the uterosacral ligament was also s haved off and the entire specimen was removed with the LigaSure. After thorough irrigation, suction was performed. There was excellent hemostasis. Then, chromotubation was performed. Chromotubation: This was performed using 1 ampule of methylene blue in 100 cc of normal saline. Flu shed #1 with 20 cc syringe, there was no filling of the uterus or the tubes. Then, with these progre ssive filling, there was an easy smooth fill on the left tube and there was a spill. On the right si de, there was delayed spill. I had to turn the uterine manipulator facing downwards since she has a retroflexed retroverted uterus and once this was done and flushing was done in this direction, there was a good fill and spill on the right side. Once all these were confirmed, thorough irrigation and suction were performed in the pelvic cavity. the instruments were removed, trocars were removed. Un sam direct visualization, sites of entry were unremarkable. The gas was desufflated. All trocars we re removed under direct vision before that was done and the umbilical trocar removed. Uterine manipu lator and Carballo were removed from the bottom by the vaginal assistant hvac mechanic. Fascial incision was closed with tagged 0 Vicryl sutures tied to each other and all skin incisions we re closed with interrupted 4-0 Monocryl. The patient recovered from anesthesia and taken to PACU in stable condition. She will follow up with me in 1 week and we will discuss about the findings. She should continue to take vitamins and if she is not, at least take folic acid and she can be normally sexually active in a week and we will continue to follow her in 1 week. GRECIA/IVETTE Voice ID: [id number] Report ID: [id number]
== END 2025-02-21 12:45 | disposition home or self-care (01) ==
LOC: OR 05:55
PROVIDERS: ATTEND Obstetrics & Gynecology
PROC: 0WBF4ZZ Excision of Abdominal Wall, Percutaneous Endoscopic Approach (ICD-10-PCS; 2025-02-21)
PROC: 0UB44ZZ Excision of Uterine Supporting Structure, Percutaneous Endoscopic Approach (ICD-10-PCS; 2025-02-21)
PROC: 0UDB8ZZ Extraction of Endometrium, Via Natural or Artificial Opening Endoscopic (ICD-10-PCS; principal; 2025-02-21 07:00)
DX: N92.1 Excessive and frequent menstruation with irregular cycle (principal); N94.6 Dysmenorrhea, unspecified; N97.9 Female infertility, unspecified; N71.1 Chronic inflammatory disease of uterus; N80.C19 Endometriosis of the anterior abdominal wall, unspecified depth; N80.3C1 Endometriosis of the right uterosacral ligament, unspecified depth; N80.3C2 Endometriosis of the left uterosacral ligament, unspecified depth
CPT/HCPCS: 93005; 85025 ×2; 81001; 80048; 36415 ×2; 86900; 86850; 81025; 86901; 82947 ×2; 88305; 58558; 58662; J2704; J2710; J7613; J2003; J2250; J3010 ×2; J1100; J1171 ×2; J2405; J7040; J7030; A4314